=== PATIENT | female | born 1940 | race Two or more races ===

== ENCOUNTER 2016-11-28 13:45 | Inpatient (IN) | payer OTHER ==
[~2016-11-28] VITALS: Ht 162.6 cm; Wt 82.1 kg
[2016-11-28 15:18] LABS: BASOPHILS % (AUTO) 0.7 % (0.0-2.0); DIFF TOTAL % 100 %; EOSINOPHILS # (AUTO) 0.2 /CMM (0.0-0.7); EOSINOPHILS % (AUTO) 2.9 % (0.0-6.0); HEMATOCRIT 47 % (33-45); LYMPHOCYTES # (AUTO) 1.4 /CMM (0.8-4.8); LYMPHOCYTES % (AUTO) 21.7 % (20.0-44.0); MEAN CORPUSCULAR HEMOGLOBIN 30 PG (26.0-33.0); MEAN CORPUSCULAR HGB CONC 32 g/dl (31.0-36.0); MEAN CORPUSCULAR VOLUME 95 fL (82-100); MONOCYTES # (AUTO) 0.5 /CMM (0.1-1.30); MONOCYTES % (AUTO) 7.5 % (2.0-12.0); NEUTROPHILS # (AUTO) 4.2 /CMM (1.8-8.9); NEUTROPHILS % (AUTO) 67.2 % (43.0-81.0); PLATELET COUNT (AUTO) 191 /CMM (150-450); RED BLOOD CELL COUNT(AUTO) 4.94 MIL/uL (4.0-5.2); WHITE BLOOD COUNT (AUTO) 6.3 K/uL (4.3-11.0)
[2016-11-28 15:28] LABS: ANION GAP 9 (5-14); CALCIUM, SERUM 9.1 mg/dL (8.5-10.1); CARBON DIOXIDE 30 mmol/L (21-32); CHLORIDE 108 mmol/L (98-107); CREATININE 0.9 mg/dL (0.6-1.3); GLUCOSE 153 mg/dL (74-106); POTASSIUM 4.1 mmol/L (3.5-5.1); SODIUM SERUM 143 mmol/L (136-145); UREA NITROGEN, BLOOD 18 mg/dL (7-18)
[2016-11-28] MEDS ORDERED: IV NS 0.9% 250 ML IV ONE (15:30)
[2016-11-28] MEDS ORDERED: IOHEXOL-350 100 ML VIAL IV ONE (15:30)
[2016-11-28] MEDS ORDERED: CT SWABBABLE VALVE TRANS SET 1 EA INFUS.SET MC ONE (15:30)
[2016-11-28 15:31] LABS: PROTHROMBIN TIME 10.5 SECS (9.5-12.7)
[2016-11-28] MEDS ORDERED: LISI10TA5 PO (15:35)
[2016-11-28] MEDS ORDERED: RIVA10TA PO (15:35)
[2016-11-28 15:36] LABS: TROPONIN I < 0.017 ng/mL (0.00-0.056)
[2016-11-28] MEDS ORDERED: ACETAMINOPHEN 325 MG TABLET PO PRN (17:00)
[2016-11-28] MEDS ORDERED: Z GUARD REMEDY 2 OZ OINT TP PRN (17:00)
[2016-11-28] MEDS ORDERED: MAGNESIUM HYDROXIDE 30 ML UDC PO PRN (17:00)
[2016-11-28] MEDS ORDERED: MAG HYDROX/AL HYDROX/SIMETH 30 ML UDC PO PRN (17:00)
[2016-11-28] MEDS ORDERED: ONDANSETRON HCL/PF 4 MG/2 ML VIAL IVP PRN (17:00)
[2016-11-28] MEDS ORDERED: ZOLPIDEM TARTRATE 5 MG TABLET PO PRN (17:00)
[2016-11-28] MEDS ORDERED: hydrALAZINE HCL 10 MG TABLET PO PRN (17:00)
[2016-11-28] MEDS ORDERED: HYDROCODONE/APAP 5/325MG 1 EACH TABLET PO PRN (17:00)
[2016-11-28] MEDS: BLOOD SUGAR DIAGNOSTIC 1 EACH STRIP IN SCH ×2 (17:30→21:04)
[2016-11-28] MEDS ORDERED: BLOOD SUGAR DIAGNOSTIC 1 EACH STRIP IN SCH (18:00)
[2016-11-28 18:30] VITALS: BP 144/77
[2016-11-28 20:00] VITALS: BP 137/81
[2016-11-28] MEDS: ATORVASTATIN 40 MG TABLET PO SCH (21:04)
[2016-11-29] VITALS (7 sets, daily range): BP systolic 118–140; BP diastolic 57–82
[2016-11-29] MEDS ORDERED: IV SET PRIMARY PUMP SET 1 EA INFUS.SET MC ONE (05:48)
[2016-11-29] MEDS: IV NS 0.9% 1,000 ML IV PRN ×2 (05:52→22:28)
[2016-11-29 06:44] LABS: BASOPHILS % (AUTO) 0.6 % (0.0-2.0); DIFF TOTAL % 100 %; EOSINOPHILS # (AUTO) 0.3 /CMM (0.0-0.7); EOSINOPHILS % (AUTO) 4.3 % (0.0-6.0); HEMATOCRIT 43 % (33-45); HEMOGLOBIN 14.3 g/dL (11.5-14.8); LYMPHOCYTES # (AUTO) 1.2 /CMM (0.8-4.8); MEAN CORPUSCULAR HEMOGLOBIN 31 PG (26.0-33.0); MEAN CORPUSCULAR HGB CONC 33 g/dl (31.0-36.0); MEAN CORPUSCULAR VOLUME 94 fL (82-100); MONOCYTES # (AUTO) 0.6 /CMM (0.1-1.30); MONOCYTES % (AUTO) 9.6 % (2.0-12.0); NEUTROPHILS # (AUTO) 4.4 /CMM (1.8-8.9); NEUTROPHILS % (AUTO) 66.5 % (43.0-81.0); PLATELET COUNT (AUTO) 185 /CMM (150-450); RED BLOOD CELL COUNT(AUTO) 4.58 MIL/uL (4.0-5.2); WHITE BLOOD COUNT (AUTO) 6.6 K/uL (4.3-11.0)
[2016-11-29] MEDS: BLOOD SUGAR DIAGNOSTIC 1 EACH STRIP IN SCH ×4 (07:30→22:28)
[2016-11-29 07:36] LABS: CALCIUM, SERUM 8.9 mg/dL (8.5-10.1); PHOSPHORUS 3.4 mg/dL (2.5-4.9); POTASSIUM 4.2 mmol/L (3.5-5.1)
[2016-11-29] MEDS: PANTOPRAZOLE 40 MG TABLET.DR PO SCH (09:36)
[2016-11-29] MEDS: LISINOPRIL (10MG) 10 MG TABLET PO SCH (09:37)
[2016-11-29] MEDS: ASPIRIN 81 MG TAB.CHEW PO SCH (09:37)
[2016-11-29] MEDS ORDERED: ASPI81TA2 PO (11:48)
[2016-11-29] MEDS ORDERED: ATOR40TA PO (11:48)
[2016-11-29] MEDS ORDERED: RIVAROXABAN 10 MG TABLET PO SCH (17:00)
[2016-11-29] MEDS: ATORVASTATIN 40 MG TABLET PO SCH (22:28)
[2016-11-30] VITALS: BP 105/63
[2016-11-30 04:00] VITALS: BP 138/63
[2016-11-30] MEDS: BLOOD SUGAR DIAGNOSTIC 1 EACH STRIP IN SCH ×2 (06:34→12:44)
[2016-11-30 07:51] LABS: BASOPHILS % (AUTO) 0.5 % (0.0-2.0); DIFF TOTAL % 100 %; EOSINOPHILS # (AUTO) 0.3 /CMM (0.0-0.7); EOSINOPHILS % (AUTO) 4.6 % (0.0-6.0); HEMATOCRIT 44 % (33-45); HEMOGLOBIN 14.6 g/dL (11.5-14.8); LYMPHOCYTES # (AUTO) 1.1 /CMM (0.8-4.8); LYMPHOCYTES % (AUTO) 17.3 % (20.0-44.0); MEAN CORPUSCULAR HEMOGLOBIN 31 PG (26.0-33.0); MEAN CORPUSCULAR HGB CONC 33 g/dl (31.0-36.0); MEAN CORPUSCULAR VOLUME 94 fL (82-100); MONOCYTES # (AUTO) 0.6 /CMM (0.1-1.30); MONOCYTES % (AUTO) 8.8 % (2.0-12.0); NEUTROPHILS # (AUTO) 4.5 /CMM (1.8-8.9); NEUTROPHILS % (AUTO) 68.8 % (43.0-81.0); PLATELET COUNT (AUTO) 189 /CMM (150-450); RED BLOOD CELL COUNT(AUTO) 4.67 MIL/uL (4.0-5.2); WHITE BLOOD COUNT (AUTO) 6.5 K/uL (4.3-11.0)
[2016-11-30 08:00] VITALS: BP 159/84
[2016-11-30 08:11] LABS: CALCIUM, SERUM 8.6 mg/dL (8.5-10.1); CREATININE 0.9 mg/dL (0.6-1.3); PHOSPHORUS 3.7 mg/dL (2.5-4.9); POTASSIUM 4.3 mmol/L (3.5-5.1)
[2016-11-30] MEDS: PANTOPRAZOLE 40 MG TABLET.DR PO SCH (08:57)
[2016-11-30] MEDS: ASPIRIN 81 MG TAB.CHEW PO SCH (08:57)
[2016-11-30 08:58] VITALS: BP 124/76
[2016-11-30] MEDS: LISINOPRIL (10MG) 10 MG TABLET PO SCH (08:58)
== END 2016-11-30 18:13 | disposition home or self-care (01) | DRG 45 ==
LOC: ER 13:48 → TELE1 16:49
PROVIDERS: ADMIT Internal Medicine; ATTEND Internal Medicine
DX: I63.9 Cerebral infarction, unspecified (principal); I10 Essential (primary) hypertension; G45.9 Transient cerebral ischemic attack, unspecified; E78.5 Hyperlipidemia, unspecified; K21.9 Gastro-esophageal reflux disease without esophagitis; Z86.718 Personal history of other venous thrombosis and embolism
CPT/HCPCS: 36415; 70450-TC; 70496-TC; 70498-TC; 71010-TC; 80048-TC; 80061-TC; 82962-TC; 83735-TC; 83880; 84100-TC; 84484-TC; 85025-TC; 85652-TC; 85730-TC; 87081-TC; 92611-TC; 93307-TC; 93970-TC; 97003-TC; A4606; J7030; Z7610